=== PATIENT | female | born 1990 | race Caucasian/White ===

== ENCOUNTER 2024-07-04 16:29 | Emergency (ER) | payer MEDICAID, OTHER ==
[~2024-07-04] VITALS: Ht 165.1 cm; Wt 60.3 kg
--- NOTE | 2024-07-04 19:05 | ED.PDOC ---
History of Present Illness HPI Comments 33-year-old with PMHx Anxiety presents with a chief complaint of Anxiety x 1 day. Patient reports that she is out of Ativan everyday for anxiety and if she doesn't take it once a day then she gets anxious. Patient mentions that she has been out of medication for a couple days. Patient is requesting new presc ription. No other symptoms or modifying factors present at this time. Chief Complaint: Anxiety Time Seen by MD: 19:02 Primary Care Provider: NARA Ladd Notes: Medications, Allergies Allergies: Coded Allergies: NO KNOWN ALLERGIES (Unverified , 07/04/24) Information Source: Patient Mode of Arrival: Ambulatory Severity: Moderate Timing: Days Duration: Since onset Prehospital treatment: None Past Medical History PAST MEDICAL HISTORY: Anxiety Surgical History: Denies all surgeries CAR PAINTER History: No Pertinent CAR PAINTER History Family History Family History: Reviewed,noncontributory to illness, No family hx of HTN Social History Smoker: Non-Smoker Alcohol: Rarely Drugs: Denies Drug Use Lives In: Home Constitutional: denies: chills, diaphoresis, fatigue, fever, malaise, sweats, weakness, others EENTM: denies: blurred vision, double vision, ear bleeding, ear discharge, ear drainage, ear pain, ear ringing, eye pain, eye redness, hearing loss, mouth pain, mouth swelling, nasal discharge, nose bleeding, nose congestion, nose matheus n, photophobia, tearing, throat pain, throat swelling, voice changes, others Respiratory: denies: cough, hemoptysis, orthopnea, SOB at rest, shortness of breath, SOB with excertion, stridor, wheezing, others Cardiovascular: denies: chest pain, dizzy spells, diaphoresis, Dyspnea on exertion, edema, irregular heart beat, left arm pain, lightheadedness, palpitations, PND, syncope, others Gastrointestinal: denies: abdomen distended, abdominal pain, blood streaked bowels, constipated, diarrhea, dysphagia, difficulty swallowing, hematemesis, melena, nausea, poor appetite, poor fluid intake, rectal bleeding, rectal pain, vomiting, others Genitourinary: denies: abnormal vagina bleeding, burning, dyspareunia, dysuria, flank pain, frequency, hematuria, incontinence, pain, , vagina discharge, urgency, others Neurological: denies: dizziness, fainting, headache, left sided numbness, left sided weakness, numbness, paresthesia, pre-existing deficit, right sided numbness, right sided weakness, seizure, speech problems, tingling, tremors, weakness, others Musculoskeletal: denies: back pain, gout, joint pain, joint swelling, muscle pain, muscle stiffness, neck pain, others Integumetry: denies: bruises, change in color, change in hair/nails, dryness, laceration, lesions, lumps, rash, wounds, others Allergic/Immunocompromised: denies: Difficulty Healing, Frequent Infections, Hives, Itching, others Hematologic/Lymphatic: denies: anemia, blood clots, easy bleeding, easy bruising, swollen glands, others Endocrine: denies: excessive hunger, excessive sweating, excessive thirst, excessive urination, flushing, intolerance to cold, intolerance to heat, unexplained weight gain, unexplained weight loss, others Psychiatric: reports: anxiety; denies: bipolar disorder, depression, hopeless, panic disorder, schizophrenia, sleepless, suicidal, others All Other Systems: Reviewed and Negative Physical Exam General Appearance: No Apparent Distress, Normal HEENT: Normal ENT Inspection, Pharynx Normal, TMs Normal Neck: Full Range of Motion, Non-Tender, Normal, Normal Inspection Respiratory: Chest Non-Tender, Lungs Clear, No Accessory Muscle Use, No Respiratory Distress, Normal Breath Sounds Cardiovascular: No Edema, No JVD, No Murmur, No Gallop, Normal Peripheral Pulses, Regular Rate/Rhythm Breast Exam: Deferred Gastrointestinal: No Organomegaly, Non Tender, No Pulsatile Mass, Normal Bowel Sounds, Soft Genitalia: Deferred Pelvic: Deferred Rectal: Deferred Extremities: No calf tenderness, Normal capillary refill, Normal inspection, Normal range of motion, Non-tender, No pedal edema Musculoskeletal : Apperance: Normal Neurologic: Alert, equipment installation professional II-XII nml as Tested, No Motor Deficits, Normal Affect, Normal Mood, No Sensory Deficits Cerebellar Function: Normal Reflexes: Normal Skin: Dry, Normal Color, Warm Lymphatic: No Adenopathy Was a procedure done? Was a procedure done?: No Differential Dx Considerations may include: BENZO WITHDRAWAL, BENZO DEPENDENCY X-Ray, Labs, Meds, VS Vital Signs Date Time Temp Pulse Resp B/P (MAP) Pulse Ox O2 Delivery O2 Flow Rate FiO2 07/04/24 16:40 98.1 98 16 106/56 (57) 97 Time of 1ST Reevaluation: 19:33 Reevaluation 1ST: Unchanged Patient Education/Counseling: Diagnosis, Treatment, Prognosis, Need For Follow Up Family Education/Counseling: No Family Present Additional Information I discussed treatments and results with medical personnel PT IS VERY COMFORTABLE, NOT SHOWING ANY SIGNS OF WITHDRAWAL, BUT I WILL GIVE HER ONE DOSE HERE TO AVERT WITHDRAWAL LATER TONIGHT. SHE WILL HAVE HER REFILL FROM HER DOCTOR IN AM Departure 1 Departure Time of Disposition: 19:18 Impression: Primary Impression: Anxiety Disposition: 01 HOME / SELF CARE / HOMELESS Condition: Good Discharged With: Self Critical Care Note Critical Care Time?: No Stability Stability form required: No I personally scribed for NICOLASA KEITH MD ([email or web address]) on 07/04/24 at 19:05. Electronically submitted by Azam Maria ([email or web address]). NICOLASA KEITH MD Jul 04, 2024 19:05
[2024-07-04] MEDS ORDERED: LORazepam 0.5 MG TAB PO ONE (19:15)
[2024-07-04 19:45] VITALS: BP 131/80; PULSE 71; RESP 20; TEMP 97.7
[2024-07-04 19:51] VITALS: O2SAT 99
[2024-07-04] MEDS: ALPRAZolam 0.25 MG TAB PO ONE (20:19)
== END 2024-07-04 20:52 | disposition home or self-care (01) ==
LOC: ER 16:29
DX: F41.9 Anxiety disorder, unspecified (principal)

== ENCOUNTER 2024-08-11 05:45 | Emergency (ER) | payer MEDICAID ==
[~2024-08-11] VITALS: Ht 165.1 cm; Wt 62.2 kg
[2024-08-11 06:00] VITALS: BP 114/80; PULSE 71; RESP 18; TEMP 98; O2SAT 98
[2024-08-11] MEDS ORDERED: HYDR-4924 PO (06:45)
--- NOTE | 2024-08-11 06:52 | ED.PDOC ---
Psychiatric HPI Comments 34 year old F with a history of anxiety presents for medication refill. Reports she ran out of her medication no other complaint Chief Complaint: Anxiety Time Seen by MD: 06:33 Primary Care Provider: NARA Reviewed Notes: Nurses Notes, Medications, Allergies Information Source: Patient Mode of Arrival: Ambulatory Past Medical History PAST MEDICAL HISTORY: Anxiety All Other Systems: Reviewed and Negative (per hpi) Physical Exam General Appearance: No Apparent Distress, Normal HEENT: Normal ENT Inspection, Pharynx Normal, TMs Normal Neck: Full Range of Motion, Non-Tender, Normal, Normal Inspection Respiratory: Chest Non-Tender, Lungs Clear, No Accessory Muscle Use, No Respiratory Distress, Normal Breath Sounds Cardiovascular: No Edema, No JVD, No Murmur, No Gallop, Normal Peripheral Pulses, Regular Rate/Rhythm Breast Exam: Deferred Gastrointestinal: No Organomegaly, Non Tender, No Pulsatile Mass, Normal Bowel Sounds, Soft Genitalia: Deferred Pelvic: Deferred Rectal: Deferred Extremities: No calf tenderness, Normal capillary refill, Normal inspection, Normal range of motion, Non-tender, No pedal edema Musculoskeletal : Apperance: Normal Neurologic: Alert, lan specialist II-XII nml as Tested, No Motor Deficits, Normal Affect, Normal Mood, No Sensory Deficits Cerebellar Function: Normal Reflexes: Normal Skin: Dry, Normal Color, Warm Lymphatic: No Adenopathy Was a procedure done? Was a procedure done?: No Psych Differential Dx Psych. Differential Dx: Anxiety X-Ray, Labs, Meds, VS Vital Signs Date Time Temp Pulse Resp B/P (MAP) Pulse Ox O2 Delivery O2 Flow Rate FiO2 08/11/24 06:00 Room Air 08/11/24 06:00 98.0 71 18 114/80 (91) 98 08/11/24 06:00 98.0 71 18 114/80 (91) 98 98.0 X-Ray, Labs, Meds, VS Comment ASHLEY NEVAREZ Sold: 07/21/2024 Filled: 07/21/2024 ALPRAZOLAM Refill 3 of 2 0.25 MG TAB Days: 30 Qty: 20 Daily: N/A Total: N/A AUGIE SCHROEDER H, (DO) KYLEE: [id number] [facility] #[id number] Pharmacy #: [id number] Serialized Rx: NOT REPORTED Pharmacy Rx: [id number] Advised pt to f/u with PCP and she stormed out Rx hydroxyzine prn Time of 1ST Reevaluation: 06:44 Reevaluation 1ST: Improved Patient Education/Counseling: Diagnosis, Treatment Family Education/Counseling: Diagnosis, Treatment Departure 1 Departure Time of Disposition: 06:45 Impression: Primary Impression: Anxiety Disposition: HOME / SELF CARE / HOMELESS Condition: Stable e-Prescriptions Hydroxyzine HCl (Hydroxyzine Hydrochloride) 25 Mg Tab 25 MG PO TIDPRN PRN for 30 Days, #90 TAB 0 Refills Prov: MICHELLE PAULSON GROUNDMAN/LINEMAN 08/11/24 Critical Care Note Critical Care Time?: No Stability Stability form required: No Heart Score Heart Score: Heart Score Response (Comments) Value History N/A 0 EKG N/A 0 Age N/A 0 Risk Factors N/A 0 Troponin N/A 0 Total 0 MICHELLE PAULSON GROUNDMAN/LINEMAN Aug 11, 2024 06:52
== END 2024-08-11 08:56 | disposition home or self-care (01) ==
LOC: ER 05:45
DX: F41.9 Anxiety disorder, unspecified (principal); Z76.0 Encounter for issue of repeat prescription